=== PATIENT | female | born 1955 | race Caucasian/White ===

== ENCOUNTER → 2017-03-11 | Outpatient (CLI) | payer OTHER | LOC: BRMIMAGING 13:15 | PROVIDERS: ATTEND Family Medicine | DX: Z12.31 Encounter for screening mammogram for malignant neoplasm of breast (principal); Z13.820 Encounter for screening for osteoporosis; M85.80 Other specified disorders of bone density and structure, unspecified site | CPT/HCPCS: G0202 ==

== ENCOUNTER → 2018-03-16 | Outpatient (CLI) | payer OTHER | LOC: BRMIMAGING 11:44 | PROVIDERS: ATTEND Physician Assistant Medical | DX: Z12.31 Encounter for screening mammogram for malignant neoplasm of breast (principal) ==

== ENCOUNTER → 2018-09-27 | Outpatient (CLI) | payer OTHER | LOC: BRMIMAGING 11:11 | PROVIDERS: ATTEND Family Medicine | DX: J34.89 Other specified disorders of nose and nasal sinuses (principal) | CPT/HCPCS: 70150-PO ==

== ENCOUNTER 2019-02-13 06:17 | Inpatient (IN) | payer OTHER ==
[2019-02-13] MEDS ORDERED: ceFAZolin 2 GM/DEXTROSE 100 ML IV ONE (06:30)
[2019-02-13] MEDS ORDERED: LR 1,000 ML IV ONE (06:32)
--- NOTE | 2019-02-13 07:27 | PDANEPAE ---
ANE History of Present Illness left upper lung mass ANE Past Medical History - Cardiovascular History Hx Hypertension: No Hx Arrhythmias: Yes Hx Chest Pain: No Hx Coronary Artery / Peripheral Vascular Disease: No Hx CHF / Valvular Disease: No Hx Palpitations: Yes Cardiovascular History Comment: ATRIAL FIB - Pulmonary History Hx COPD: No Hx Asthma/Reactive Airway Disease: No Hx Recent Upper Respiratory Infection: No Hx Oxygen in Use at Home: No Hx Sleep Apnea: Yes Sleep Apnea Screening Result - Last Documented: Positive Pulmonary History Comment: MASS L UPPER LOBE - Neurologic History Hx Cerebrovascular Accident: No Hx Seizures: No Hx Dementia: No - Endocrine History Hx Diabetes: No Hypothyroid: Yes Hyperthyroid: No Obesity: no Endocrine History Comment: THYROIDECTOMY - Renal History Hx Renal Disorders: No - Liver History Hx Hepatic Disorders: No - Neurological & Psychiatric Hx Hx Neurological and Psychiatric Disorders: No - Cancer History Hx Cancer: No Cancer History Comment: UTERUS - PARTIAL HYSTERECTOMY - Congenital Disorder History Hx Congenital Disorders: No - GI History GERD: no Hx Gastrointestinal Disorders: No - Other Health History Other Health History: ECZEMA - Chronic Pain History Chronic Pain: No - Surgical History Prior Surgeries: THYROIDECTOMY. TONSILLECTOMY. C SECTION. PARTIAL HYSTERECTOM ANE Review of Systems Review of systems is: negative Review of Systems: - Exercise capacity METS (RN): 4 METS ANE Patient History - Allergies Allergies/Adverse Reactions: Sulfa (Sulfonamide Antibiotics) Allergy (Verified 02/13/19 06:37) Rash - Home Medications Home medications: home medication list seen and reviewed Home Medications: ALPRAZolam [Xanax 0.5 MG (*)] 0.5 mg PO HS PRN 02/07/19 [Last Taken 02/12/19] Aspirin [Aspirin 81mg (*)] 81 mg PO DAILY 02/07/19 [Last Taken 02/08/19] Calcium Carb W/Vit D [Calcium Carb W/Vit D 500/200 (*)] 500 mg PO DAILY [Last Taken 02/08/19] Levothyroxine [Synthroid 50 mcg (*)] 50 mcg PO DAILY06 02/07/19 [Last Taken ] Metoprolol Succinate Xr [Toprol Xl 25 mg (*)] 12.5 mg PO DAILY 02/07/19 [Last Taken 02/12/19] [place]-3 Fatty Acids [Fish Oil 1000 mg (*)] 1,000 mg PO DAILY 02/07/19 [Last Taken 02/08/19] Propafenone HCl Sr [Rythmol Sr 325mg (*)] 325 mg PO Q12 02/07/19 [Last Taken ] Ibuprofen 02/08/19 [Last Taken 02/08/19] - NPO status NPO Status: no food or drink >8 hours NPO Since - Liquids (Date): 02/13/19 NPO Since - Liquids (Time): 04:30 NPO Since - Solids (Date): 02/12/19 NPO Since - Solids (Time): 19:00 - Anes Hx Anes Hx: no prior problems - Smoking Hx Smoking Status: Former smoker - Family Anes Hx Family Anes Hx: none Family Hx Anesthesia Complications: NEG ANE Labs/Vital Signs - Vital Signs Blood Pressure: 142/94 Heart Rate: 52 Respiratory Rate: 16 O2 Sat (%): 98 Height: 152.4 cm Weight: 65.771 kg ANE Physical Exam - Airway Neck exam: FROM Mallampati Score: Class 2 Mouth exam: normal dental/mouth exam - Pulmonary Pulmonary: no respiratory distress, clear to auscultation - Cardiovascular Cardiovascular: regular rate and rhythym, no murmur, rub, or gallop - ASA Status ASA Status: III ANE Anesthesia Plan Anesthesia Plan: general endotracheal anesthesia, epidural Lines/Monitors: arterial line
[2019-02-13] MEDS ORDERED: MIDAZOLAM 2 MG/2 ML VIAL IVP ONE (07:33)
[2019-02-13] MEDS ORDERED: BUPIVACAINE/EPI 0.5% 30 ML SDV ONE (07:44)
[2019-02-13] MEDS ORDERED: TALC 3 GM INTRAPLEURAL VIAL ONE (07:45)
--- NOTE | 2019-02-13 07:46 | PDHPUP ---
History & Physical Update H&P update statement: This history and physical update is based on an assessment of the patient which was completed after admission or registration (within 24 hours), but prior to the surgery/procedure. H&P update: H&P reviewed & patient examined, no change in patient's condition since H&P completed
[2019-02-13] MEDS ORDERED: fentaNYL 250 MCG/5 ML INJ ONE (07:47)
[2019-02-13] MEDS ORDERED: PROPOFOL/EMULSION 500 MG/50 ML BOTTLE IV ONE (07:47)
[2019-02-13] MEDS ORDERED: ROCURONIUM 50 MG/5 ML VIAL ONE (07:48)
[2019-02-13] MEDS ORDERED: LIDOCAINE 2% 2 ML INJ ONE ×2 (07:49)
[2019-02-13] MEDS ORDERED: ePHEDrine SULFATE 25 MG/5 ML SYR ONE ×2 (09:13→09:31)
[2019-02-13] MEDS ORDERED: PHENYLEPHRINE HCL 100 MCG/ML SYR ONE (09:49)
[2019-02-13] MEDS ORDERED: HYDROmorphONE/DILAUDID 2 MG/ML INJ IVP PRN (10:19)
[2019-02-13] MEDS ORDERED: PROMETHAZINE HCL 25 MG/ML INJ IVP PRN (10:19)
[2019-02-13] MEDS ORDERED: NALOXONE HCL 0.4 MG/ML INJ IVP PRN ×2 (10:19→11:00)
--- NOTE | 2019-02-13 10:20 | POSTANESTH ---
Post Anesthetic Evaluation Cardiovascular Status: Normal, Stable Respiratory Status: Normal, Stable Level of Consciousness/Mental Status: Can Participate in Eval Pain Control: Adequate, Prn Tx Ordered Nausea/Vomiting Control: Adequate, Prn Tx Ordered Complications Possibly Related to Anesthesia: None Noted
[2019-02-13] MEDS ORDERED: ONDANSETRON 4 MG/2 ML VIAL ONE (10:21)
[2019-02-13] MEDS ORDERED: DEXAMETHASONE 4 MG/ML VIAL ONE (10:21)
[2019-02-13] MEDS ORDERED: GLYCOPYRROLATE 0.2 MG/1 ML VIAL ONE ×2 (10:29)
[2019-02-13] MEDS ORDERED: ONDANSETRON 4 MG/2 ML VIAL IVP PRN ×2 (10:44→10:55)
[2019-02-13] MEDS ORDERED: ACETAMINOPHEN 325 MG TAB PO PRN (10:55)
[2019-02-13] MEDS ORDERED: ALPRAZolam 0.5 MG TAB PO PRN (10:58)
[2019-02-13] MEDS ORDERED: diphenhydrAMINE 25 MG CAP PO PRN (11:00)
--- NOTE | 2019-02-13 11:01 | POSTOPPROG ---
Post Op Note Date of Operation: 02/13/19 Surgeon: Clement Sherwood Oil Transport Driver: Kelly Dodge Anesthesiologist: Mike Encinas Anesthesia: GET(General Endotracheal) Pre-op Diagnosis: ANTWAN lung mass Post-op Diagnosis: likely ANTWAN lung cancer Procedure: L VATS, L minithoracotomy, ANTWAN lobectomy, hilar and mediastinal LN bx 's Findings: frozen section +malignancy, bronchial margin clear Inf/Abcess present in the surg proc area at time of surgery?: No EBL: Minimal Complications: none Drains: Other (2 28 Fr chest tubes) Specimen(s): multiple to pathology
[2019-02-13] MEDS: fentaNYL 100 MCG/2 ML INJ IVP PRN ×2 (11:05→11:17)
[2019-02-13] MEDS ORDERED: fentaNYL 100 MCG/2 ML INJ ONE (11:06)
--- NOTE | 2019-02-13 11:28 | PDMN ---
Medical Necessity Medical necessity: Pt meets inpt criteria per MD order and [facility] S-802, Lobectomy , Lung, by Video-Assisted Thoracic Surgery (VATS), IP only list, 2 days. 63 y /o w/ANTWAN lung mass admitted for L VATS, L minithoracotomy, ANTWAN lobectomy, hilar and mediastinal LN bx's, and post-op care.
[2019-02-13] MEDS: fentaNYL 2MCG/ML&BUP 0.0625% in 100ML NS EP SCH ×2 (11:33→19:42)
[2019-02-13] MEDS: KETOROLAC 15 MG/1 ML SDV IVP SCH ×3 (12:46→23:27)
[2019-02-13] MEDS: NS 1,000 ML IV SCH ×2 (12:46→22:40)
[2019-02-13] MEDS: DC NARCS MISC SCH (12:52)
[2019-02-13] MEDS: REGARDING ANTICOAG MISC SCH (12:52)
--- NOTE | 2019-02-13 17:11 | SOAPPROG ---
SOAP Progress Note Assessment/Plan: Assessment/Plan: 63 Y F s/p L VATS, L minithoracotomy, ANTWAN mass intraoperative needle biopsy, ANTWAN lobectomy, hilar and mediastinal LN biopsies. POD#0. Post op check. Wounds intact. Pain controlled. CT to suction. Regular diet. Continue lyon. D/c arterial line. Continue routine post op ICU care. CXR in am. Path pending, suspicious for CA. Also seen by Dr. Sherwood. 02/13/19 17:09 Objective: Vital Signs Temp Pulse Resp BP Pulse Ox 36.5 C 54 L 18 129/55 H 100 02/13/19 12:30 02/13/19 14:00 02/13/19 14:00 02/13/19 14:00 02/13/19 14:00 02/12/19 02/13/19 02/14/19 05:59 05:59 05:59 Intake Total 1500 Output Total 50 Balance 1450 ICD10 Worksheet Patient Problems: Problems Problem Status Onset Mass of upper lobe of left lung Acute - ICD10 Problem Qualifiers (1) Mass of upper lobe of left lung
[2019-02-13] MEDS ORDERED: CALCIUM CARBONATE 500 MG CHEWABLE TAB PO PRN (19:53)
[2019-02-13] MEDS: PROPAFENONE HCL SR 325 MG CAP PO SCH (20:24)
[2019-02-13] MEDS: DOCUSATE SODIUM 100 MG CAP PO SCH (20:24)
[2019-02-13] MEDS: METOPROLOL SUCCINATE XR 25 MG TAB PO SCH (20:25)
[2019-02-13] MEDS ORDERED: CEPACOL LOZENGE PO PRN (22:47)
[2019-02-14] MEDS: LEVOTHYROXINE 50 MCG TAB PO SCH (05:38)
[2019-02-14] MEDS: KETOROLAC 15 MG/1 ML SDV IVP SCH (05:39)
[2019-02-14] MEDS: NS 1,000 ML IV SCH ×2 (05:40→15:28)
[2019-02-14] MEDS: fentaNYL 2MCG/ML&BUP 0.0625% in 100ML NS EP SCH ×2 (07:24→17:20)
[2019-02-14] MEDS: DOCUSATE SODIUM 100 MG CAP PO SCH ×2 (08:57→21:14)
[2019-02-14] MEDS: PROPAFENONE HCL SR 325 MG CAP PO SCH ×2 (08:58→21:41)
[2019-02-14] MEDS: ASPIRIN 81 MG CHEWABLE TAB PO SCH (08:58)
[2019-02-14] MEDS ORDERED: METOPROLOL SUCCINATE XR 25 MG TAB PO SCH (09:00)
[2019-02-14] MEDS: DC NARCS MISC SCH (09:16)
[2019-02-14] MEDS: REGARDING ANTICOAG MISC SCH (09:17)
--- NOTE | 2019-02-14 10:00 | ASMTCMCOM ---
CM Note CM Note Notes: Pt is a 63 yo F who underwent left upper lobe lumpectomy with Dr. Sherwood. HANDBAG FRAMES INSPECTOR ordered. Pt has chest tubes. Pt reports she sees Dr. Foote in the community and is interested in getting linked with a nurse navigator. CM also talked with pt about getting Palliative Care Services and pt was interested in outpatient linkage. Pt reports she has a boyfriend and sister who are supportive. CM to follow. Plan: TBD Date Signed: 02/14/2019 10:00 AM Electronically Signed By:STAR Sotelo
[2019-02-14] MEDS ORDERED: PNEUMOC 13-VAL CONJ-DIP CRM/PF 0.5 ML SYR (PREVNAR 13) IM ONE (10:12)
[2019-02-14] MEDS: FAMOTIDINE 20 MG TAB PO SCH ×2 (10:47→21:29)
--- NOTE | 2019-02-14 10:48 | PDPAINCON ---
Pain Management Consultation Patient referred by : Presley - Subjective Pain at rest (/10): 3 Pain with activity (/10): 7 (able to take a deep breath) Pain is: under control Activity: out of bed with assistance - Objective Technique: continuous epidural Continuous infusion: bupivicaine Continuous rate (ml/hr): 6 Bolus (ml): 4 Lockout interval (mins): 15 Catheter site: serosanguinous fluid (minimal) Sensory and motor exam: consistent with block Vital signs: stable - Assessment/Plan Assessment/Plan: pain well-controlled, continue current mgmt (Will continue PCEA , PCEA discussed with patient. Questions answered.)
--- NOTE | 2019-02-14 11:31 | SOAPPROG ---
SOAP Progress Note Assessment/Plan: Assessment/Plan: 63 Y F s/p L VATS, L minithoracotomy, ANTWAN mass intraoperative needle biopsy, ANTWAN lobectomy, hilar and mediastinal LN biopsies. POD#1. Seen c Dr. Sherwood. Continue CT to suction. Ok to walk on water seal. Excellent pain control c epidural. Continue ylon until removed. Activity restrictions per anesthesia. Adding pepcid and tums for heartburn symptoms. VTE ppx c lovenox tomorrow. Anesthesia aware. Pathology pending. Dispo: transfer from ICU. PCU vs [facility]--would like tele 12/23 hx afib. S: pain controlled. had a little fleeting sharpness in incision when she coughed. O: alert, nad ctab no air leak, good tidaling rrr abd soft wounds well dressed 02/14/19 11:12 Objective: Vital Signs Temp Pulse Resp BP Pulse Ox 36.8 C 60 16 93/56 L 97 02/14/19 04:00 02/14/19 10:00 02/14/19 10:00 02/14/19 10:00 02/14/19 10:00 Laboratory Results 02/14/19 05:55 02/14/19 05:55 02/13/19 02/14/19 02/15/19 05:59 05:59 05:59 Intake Total 4668 Output Total 3640 Balance 2125 ICD10 Worksheet Patient Problems: Problems Problem Status Onset Mass of upper lobe of left lung Acute - ICD10 Problem Qualifiers (1) Mass of upper lobe of left lung
--- NOTE | 2019-02-14 12:26 | GOP ---
[f rep st] OPERATIVE REPORT DATE OF OPERATION: 02/13/2019 SURGEON: Clement Sherwood MD LIME FILTER OPERATOR: AMOL Atwood ANESTHESIOLOGIST: Mike Encinas MD. PREOPERATIVE DIAGNOSIS: Left upper lobe mass. POSTOPERATIVE DIAGNOSIS: Left upper lobe cancer. PROCEDURE PERFORMED: 1. Video-assisted thoracoscopic surgery, left upper lobe needle biopsy. 2. Video-assisted thoracoscopic surgery, left upper lobectomy. 3. Video-assisted thoracoscopic surgery, mediastinal and hilar lymph node biopsies. FINDINGS: Patient was found to have a 3 cm mass in the midportion of the left upper lobe, which appe ared to be malignant on frozen section. There was no obvious nai spread or metastases. DESCRIPTION OF PROCEDURE: Patient taken to the operating room where she received satisfactory genera l endotracheal anesthesia by Dr. Barnett. She was placed in supine position, prepped and draped in the usual sterile fashion. The left lung was eventually decompressed and dropped down. A short incision was made in the 8th intercostal space in the midaxillary line. A trocar was introduced. Visualizat ion was adequate. Two other trocars were placed higher up in the thorax and the wound was examined. The patient had excellent fissures. There were no obvious major nodes. The mediastinal node was di ssected free by dividing the pleura over the hilum. This was removed and sent to Pathology, along wi th hilar node which was dissected free and sent to Pathology. The upper lobe was then mobilized and the arterial supply and the vein were isolated and prepared for division. However, the mass could no t be seen and not definitely palpated laparoscopically. One of the trocars was turned into a short m ini thoracotomy through the 5th intercostal space and that allowed a manual palpation of the lung. T he mass was identified. Rehan-Cut needle biopsies were taken of the mass and sent for frozen section a nd that was returned as non-small cell lung cancer, final path pending. At that point, the arterial supply to the left upper lobe was isolated and divided with Endo CARSON staplers, and the superior pulmo nary vein was also dissected free and isolated and divided with the Endo CARSON stapler. The bronchus w as then skeletonized. It was cross-clamped. There was adequate ventilation to the lower lobe, and t he bronchus was then divided with the Endo CARSON stapler as well and the specimen was brought out throu gh the thoracotomy site. The wound was tested under water and appeared to be air tight. Hemostasis was assured. There were no other major findings noted to send out. Two 28-Turkish chest tubes were b rought in through one of the trocar sites and placed in the apex of the lung. The ribs were then diane roximated with #1 Vicryl pericostal sutures with drill holes through the lower rib. Muscles were kelby sed in 2 layers with some running 0 Vicryl suture, subcu with 3-0 Vicryl, and the skin with a 3-0 Mon ocryl subcuticular stitch. The other trocar sites were closed with 4-0 Monocryl subcuticular sutures and infiltrated with 0.5% Marcaine. She tolerated the procedure well, was taken to the recovery kiran in good condition. There were no complications. Copy requested to: Qamar /[id number]/MODL
[2019-02-14] MEDS: METOPROLOL SUCCINATE XR 25 MG TAB PO SCH (21:14)
[2019-02-14] MEDS ORDERED: ALPRAZolam 0.25 MG TAB PO PRN (22:00)
[2019-02-15] MEDS ORDERED: METOPROLOL TARTRATE 25 MG TAB PO ONE (00:34)
--- NOTE | 2019-02-15 00:39 | PDHOSCONS ---
History and Physical - Chief Complaint Atrial fibrillation - History of Present Illness 63 yo F w/ lung CA and AF, admitted for VATS, converted to AF early on 02/15; hospital medicine service consulted for management. Patient underwent VATS with biopsy and lobectomy for lung CA on 02/13. Early this morning she was noted to convert to AF on the mold repairer. Rate is about 120, the patient is minimally symptomatic. She has a hx of AF and takes propafenone and metoprolol succinate 12.5 mg daily. She has paroxysmal AF and is aware of her rhythm when she converts into AF. At home she usually takes a small dose of metoprolol when she notes symptoms. At this time she denies chest pain or altered mental status. History Information - Allergies/Home Medication List Allergies/Adverse Reactions: Sulfa (Sulfonamide Antibiotics) Allergy (Verified 02/13/19 06:37) Rash Home Medications: ALPRAZolam [Xanax 0.5 MG (*)] 0.5 mg PO HS PRN 02/07/19 [Last Taken 02/12/19] Aspirin [Aspirin 81mg (*)] 81 mg PO DAILY 02/07/19 [Last Taken 02/08/19] Calcium Carb W/Vit D [Calcium Carb W/Vit D 500/200 (*)] 500 mg PO DAILY [Last Taken 02/08/19] Levothyroxine [Synthroid 50 mcg (*)] 50 mcg PO DAILY06 02/07/19 [Last Taken ] Metoprolol Succinate Xr [Toprol Xl 25 mg (*)] 12.5 mg PO DAILY 02/07/19 [Last Taken 02/12/19] [place]-3 Fatty Acids [Fish Oil 1000 mg (*)] 1,000 mg PO DAILY 02/07/19 [Last Taken 02/08/19] Propafenone HCl Sr [Rythmol Sr 325mg (*)] 325 mg PO Q12 02/07/19 [Last Taken ] Ibuprofen [Motrin (*)] 200 mg PO DAILY PRN 02/08/19 [Last Taken 02/08/19] I have personally reviewed and updated: family history, medical history - Past Medical History atrial fibrillation, cancer - Surgical History Additional surgical history: VATS - Family History Negative for: CAD - Social History Smoking Status: Former smoker Review of Systems Review of Systems: ROS: 10pt was reviewed & negative except for what was stated in HPI & below Physical Exam Physical Exam: Temp Pulse Resp BP Pulse Ox 37.5 C 123 H 12 99/56 L 96 02/14/19 23:44 02/14/19 23:44 02/14/19 23:44 02/14/19 23:44 02/14/19 23:44 O2 (L/minute) 2 Constitutional: no apparent distress, appears nourished Eyes: PERRL, EOMI Ears, Nose, Mouth, Throat: moist mucous membranes, no oral mucosal ulcers Cardiovascular: irregularly irregular, tachycardia Respiratory: no respiratory distress, No expiratory wheeze Gastrointestinal: normoactive bowel sounds, soft, non-tender abdomen Skin: warm, normal color Musculoskeletal: full muscle strength, no muscle tenderness Neurologic: AAOx3, CN II-XII Intact Psychiatric: interacting appropriately, not anxious Lab Data & Imaging Review 02/14/19 05:55 02/14/19 05:55 Hgb 11.6 g/dL (12.6-16.3) L 02/14/19 05:55 Hct 34.7 % (38.0-47.0) L 02/14/19 05:55 Sodium 133 mEq/L (135-145) L 02/14/19 05:55 Potassium 4.5 mEq/L (3.5-5.2) 02/14/19 05:55 Chloride 110 mEq/L (97-110) 02/14/19 05:55 Carbon Dioxide 21 mEq/l (22-31) L 02/14/19 05:55 Anion Gap 2 mEq/L (6-14) L 02/14/19 05:55 BUN 16 mg/dL (7-23) 02/14/19 05:55 Creatinine 0.7 mg/dL (0.6-1.0) 02/14/19 05:55 Estimated GFR > 60 02/14/19 05:55 Glucose 94 mg/dL (70-100) 02/14/19 05:55 Calcium 9.0 mg/dL (8.5-10.4) 02/14/19 05:55 Patient ABO/Rh O POSITIVE 02/10/19 12:30 Antibody Screen NEGATIVE 02/10/19 12:30 Assessment & Plan Assessment: 63 yo F w/ lung CA and AF, admitted for VATS, converted to AF early on 02/15; hospital medicine service consulted for management. Plan: 1. Paroxysmal atrial fibrillation - Patient converted into AF early on 02/15. HR ~120 and minimally symptomatic. She has a known hx of AF and takes propafenone and Toprol XL 12.5 mg qD as an outpatient. - Metoprolol tartrate 12.5 mg x1 now, redose if necessary - Continue to monitor on telemetry - Maintain K>4, Mg>2 2. Lung mass - S/p VATS with biopsy and lobectomy 02/13. - Management per surgery primary Thank you for this consult, the hospital medicine service will follow along with you.
[2019-02-15] MEDS: NS 1,000 ML IV SCH (01:13)
[2019-02-15] MEDS ORDERED: ALPRAZolam 0.25 MG TAB PO ONE (02:57)
[2019-02-15] MEDS: fentaNYL 2MCG/ML&BUP 0.0625% in 100ML NS EP SCH (03:53)
[2019-02-15] MEDS: LEVOTHYROXINE 50 MCG TAB PO SCH (06:29)
[2019-02-15] MEDS: REGARDING ANTICOAG MISC SCH (08:02)
[2019-02-15] MEDS: DC NARCS MISC SCH (08:02)
[2019-02-15] MEDS: PROPAFENONE HCL SR 325 MG CAP PO SCH ×2 (08:14→21:21)
[2019-02-15] MEDS: DOCUSATE SODIUM 100 MG CAP PO SCH ×2 (08:15→21:21)
[2019-02-15] MEDS: FAMOTIDINE 20 MG TAB PO SCH ×2 (08:15→21:21)
[2019-02-15] MEDS: ASPIRIN 81 MG CHEWABLE TAB PO SCH (08:15)
[2019-02-15] MEDS ORDERED: METOPROLOL TARTRATE 5 MG/5 ML INJ IVP ONE (10:31)
[2019-02-15] MEDS: ENOXAPARIN 40 MG/0.4 ML SYR SC SCH (12:05)
--- NOTE | 2019-02-15 12:05 | PDPAINCON ---
Pain Management Consultation Patient referred by Dr.: Presley - Subjective Pain at rest (/10): 0 Pain with activity (/10): 7 Pain is: under control Activity: out of bed with assistance - Objective Technique: continuous epidural Continuous infusion: Fentanyl Continuous rate (ml/hr): 6 Bolus (ml): 4 Lockout interval (mins): 15 Catheter site: clean, dry, intact Sensory and motor exam: consistent with block Vital signs: stable - Assessment/Plan Assessment/Plan: pain well-controlled, continue current mgmt Additional comments: Chest tubes removed today. Will continue thoracic PCEA for 1-[address] Sherwood.
[2019-02-15] MEDS ORDERED: METOPROLOL TARTRATE 25 MG TAB PO PRN (14:00)
--- NOTE | 2019-02-15 14:02 | HOSPPROG ---
Hospitalist Progress Note Assessment/Plan: 63 yo F w/ lung CA and AF, admitted for VATS. Medicine consulted for mgmt of atrial fibrillation with RVR. She appears to have converted to sinus but is still mildly tachycardic. #Paroxysmal atrial fibrillation: Precipitated by adrenergic surge from surgery. Now in sinus after 5mg IV metoprolol this AM. - Continue home proprafenone, metoprolol XL 12.5mg qhs - Will add metoprolol tartrate 12.5mg PRN for sustained HR>130 - Continue aspirin daily. Her [id number] score is 2 now that she is 63. Per patient, her black top raker is planning on starting her on systemic anticoagulant once surgeries are completed. #Sinus tachycardia: Likely physiologic after surgery, lobectomy, pain, etc. Continue to monitor on telemetry. #Lung mass s/p VATS with biopsy and lobectomy 02/13 - Mgmt per surgery primary Thank you for this consult, the hospital medicine service will follow along with you. Subjective: Feeling well. Doesn't know shes in afib w/rvr. No chest pain, lightheadedness, presyncope. Objective: Vital Signs Temp Pulse Resp BP Pulse Ox 36.9 C 113 H 17 120/87 H 96 02/15/19 11:12 02/15/19 11:12 02/15/19 11:12 02/15/19 11:12 02/15/19 11:12 Laboratory Results 02/15/19 07:49 02/15/19 07:49 02/14/19 02/15/19 02/16/19 05:59 05:59 05:59 Intake Total 4675 3240 400 Output Total 2550 4850 1400 Balance 2125 -1610 -1000 - Physical Exam Constitutional: no apparent distress, appears nourished, not in pain Eyes: PERRL, anicteric sclera, EOMI Ears, Nose, Mouth, Throat: moist mucous membranes, hearing normal, ears appear normal, no oral mucosal ulcers Cardiovascular: tachycardia, other (regular rhythm), No edema Respiratory: no respiratory distress, other (chest tube in place draining sanguinous fluid) Gastrointestinal: normoactive bowel sounds, soft, non-tender abdomen, no palpable masses Genitourinary: no bladder fullness, no bladder tenderness, no renal bruits Skin: no rashes or abrasions, no fluctuance, no induration Musculoskeletal: full muscle strength, no muscle tenderness, normal joint ROM Neurologic: AAOx3, sensation intact bilaterally Psychiatric: interacting appropriately, not anxious, not encephalopathic, thought process linear ICD10 Worksheet Patient Problems: Problems Problem Status Onset Mass of upper lobe of left lung Acute
--- NOTE | 2019-02-15 15:22 | SOAPPROG ---
SOAP Progress Note Assessment/Plan: Assessment/Plan: 63 Y F s/p L VATS, L minithoracotomy, ANTWAN mass intraoperative needle biopsy, ANTWAN lobectomy, hilar and mediastinal LN biopsies. POD#2 Path reveals invasive pulmonary adenocarcinoma, 1/3 L upper lobar LNs and 1/1 intralobar LNs +for mets. Mediastinal nodes negative. Chest tube with no air leak. Removed today. Follow up Xray shows no pneumo. Pain controlled with epidural. Discussed with anesthesia-- will likely take it out tomorrow or Tuesday. Will order PO meds for transition. Lovenox ok. Continue lyon until epidural is out. S: Pain controlled. No complaints. O: Alert Afebrile No increased WOB, CTAB, chest tube with no air leak, incision well dressed. Abdomen soft, nontender, nondistended 02/15/19 15:17 Objective: Vital Signs Temp Pulse Resp BP Pulse Ox 36.9 C 60 16 94/51 L 97 02/15/19 11:12 02/15/19 15:11 02/15/19 15:11 02/15/19 15:11 02/15/19 15:11 Laboratory Results 02/15/19 07:49 02/15/19 07:49 02/14/19 02/15/19 02/16/19 05:59 05:59 05:59 Intake Total 4646 3240 400 Output Total 0670 6920 1400 Balance 2125 -1610 -1000 ICD10 Worksheet Patient Problems: Problems Problem Status Onset Mass of upper lobe of left lung Acute
--- NOTE | 2019-02-15 15:58 | ASMTCMCOM ---
CM Note CM Note Notes: CM spoke with PA and MD who were agreeable to place palliative order. Pt is very appreciative. Palliative to meet with pt tomorrow. CM also contacted Nurse Navigator (Hanane) Who will come speak with pt tomorrow. PT rec home. CM to follow. Plan: home independently with [facility] Palliative support and oncology followup, including Nurse Navigator. Date Signed: 02/15/2019 03:57 PM Electronically Signed By:STAR Sotelo
[2019-02-15] MEDS ORDERED: NS 500 ML IV ONE (16:13)
[2019-02-15] MEDS ORDERED: ATROPINE SULFATE 1 MG/10 ML SYR ONE (16:20)
[2019-02-15 17:12] LABS: PLATELET COUNT 168 10^3/uL (150-400)
[2019-02-15] MEDS: HYDROCODONE/APAP 5/325 TAB PO PRN ×2 (17:59→18:33)
[2019-02-15] MEDS: POLYETHYLENE GLYCOL 3350 17 GM PKT PO PRN (18:37)
[2019-02-15] MEDS ORDERED: ONDANSETRON 4 MG/2 ML VIAL IVP PRN (19:45)
[2019-02-15] MEDS ORDERED: fentaNYL 2MCG/ML&BUP 0.0625% in 100ML NS EP SCH (20:00)
[2019-02-15] MEDS ORDERED: diphenhydrAMINE 25 MG CAP PO PRN (20:00)
[2019-02-15] MEDS ORDERED: NALOXONE HCL 0.4 MG/ML INJ IVP PRN (20:00)
[2019-02-15] MEDS: KETOROLAC 15 MG/1 ML SDV IVP SCH (21:20)
[2019-02-15] MEDS: SENNOSIDES/DOCUSATE SODIUM TAB PO SCH (21:21)
[2019-02-16] MEDS: KETOROLAC 15 MG/1 ML SDV IVP SCH ×4 (02:29→20:08)
[2019-02-16] MEDS: LEVOTHYROXINE 50 MCG TAB PO SCH (06:13)
[2019-02-16] MEDS: DC NARCS MISC SCH (08:41)
[2019-02-16] MEDS: REGARDING ANTICOAG MISC SCH (08:41)
[2019-02-16] MEDS: SENNOSIDES/DOCUSATE SODIUM TAB PO SCH ×2 (08:48→20:08)
[2019-02-16] MEDS: ENOXAPARIN 40 MG/0.4 ML SYR SC SCH (08:48)
[2019-02-16] MEDS: POLYETHYLENE GLYCOL 3350 17 GM PKT PO PRN (08:48)
[2019-02-16] MEDS: DOCUSATE SODIUM 100 MG CAP PO SCH ×2 (08:49→20:08)
[2019-02-16] MEDS: FAMOTIDINE 20 MG TAB PO SCH ×2 (08:49→20:08)
[2019-02-16] MEDS: PROPAFENONE HCL SR 325 MG CAP PO SCH ×2 (08:49→20:08)
[2019-02-16] MEDS: ASPIRIN 81 MG CHEWABLE TAB PO SCH (08:49)
--- NOTE | 2019-02-16 11:07 | PDPAINCON ---
Pain Management Consultation Patient referred by : Presley - Subjective Pain at rest (/10): 2 Pain with activity (/10): 7 Pain is: under control Activity: out of bed with assistance - Objective Technique: continuous epidural Site: thoracic Continuous infusion: Fentanyl Continuous rate (ml/hr): 4 Bolus (ml): 3 Catheter site: clean, dry, intact Sensory and motor exam: consistent with block, dermatomal level Vital signs: stable (Pt. with episode of hypotension and bradycardia yesterday afternoon, improved after a fluid bolus and holding of epidural infusion. After hemodynamic improvement, PCEA restarted at a lower rate. Pt. has remained stable since.) - Assessment/Plan Assessment/Plan: pain well-controlled, continue current mgmt, other (Patient started on PO analgesia yesterday, will encourage PO management today for breaktrhrough pain and plan to D/C epidural catheter tomorrow.)
--- NOTE | 2019-02-16 11:39 | HOSPPROG ---
Hospitalist Progress Note Assessment/Plan: 63 yo F w/ lung CA and AF, admitted for VATS. Medicine consulted for mgmt of atrial fibrillation with RVR. Had sinus pause and converted from AF to sinus bradycardia associated with hypotension 02/15. This resolved with IVF and discontinuing fentanyl. #Paroxysmal atrial fibrillation: Now in sinus. - Continue propafenone - Holding home metoprolol XL 12.5mg qhs until off of epidural - Continue aspirin daily. Her [id number] score is 2 now that she is 63. Per patient, her senior treasury consultant is planning on starting her on systemic anticoagulant once surgeries are completed. #Sinus bradycardia: Likely precipitated by excessive AV nai blockade, increased vagal tone. Now resolved. #Hypotension: Due to hypovolemia and opioid side effect. Now normotensive. 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 - Pain control per anesthesia. Plan to wean off epidural tomorrow The hospital medicine service will follow along with you. Subjective: Put back on fentanyl epidural for increasing pain. BP and HR have been stable since yesterday evening. Pain controlled today. Chest tube now out. Objective: Vital Signs Temp Pulse Resp BP Pulse Ox 36.6 C 61 15 116/72 92 02/16/19 07:00 02/16/19 10:00 02/16/19 10:00 02/16/19 10:00 02/16/19 10:07 Laboratory Results 02/15/19 16:47 02/15/19 16:47 02/15/19 02/16/19 02/17/19 05:59 05:59 05:59 Intake Total 3240 1813 Output Total 4850 3100 Balance -1610 -1287 - Physical Exam Constitutional: no apparent distress, appears nourished, not in pain Eyes: PERRL, anicteric sclera, EOMI Ears, Nose, Mouth, Throat: moist mucous membranes, hearing normal, ears appear normal, no oral mucosal ulcers Cardiovascular: regular rate and rhythym, no murmur, rub, or gallop, No JVD, No edema Respiratory: no respiratory distress, no rales or rhonchi, clear to auscultation Gastrointestinal: normoactive bowel sounds, soft, non-tender abdomen, no palpable masses Genitourinary: lyon in urethra Skin: no rashes or abrasions, no fluctuance, no induration Musculoskeletal: full muscle strength, no muscle tenderness, normal joint ROM Neurologic: AAOx3 Psychiatric: interacting appropriately ICD10 Worksheet Patient Problems: Problems Problem Status Onset Mass of upper lobe of left lung Acute
[2019-02-16] MEDS: HYDROCODONE/APAP 5/325 TAB PO PRN ×4 (12:30→21:56)
[2019-02-16] MEDS: MAGNESIUM HYDROXIDE 30 ML UDCUP PO PRN (16:10)
[2019-02-16] MEDS ORDERED: HYDROmorphONE/DILAUDID 1 MG/ML INJ IVP PRN (16:57)
[2019-02-17] MEDS: KETOROLAC 15 MG/1 ML SDV IVP SCH (03:06)
[2019-02-17] MEDS: POLYETHYLENE GLYCOL 3350 17 GM PKT PO PRN ×2 (05:04→13:28)
[2019-02-17] MEDS: LEVOTHYROXINE 50 MCG TAB PO SCH (05:04)
[2019-02-17] MEDS: ENOXAPARIN 40 MG/0.4 ML SYR SC SCH ×2 (07:09→12:06)
[2019-02-17] MEDS ORDERED: IBUPROFEN 600 MG TAB PO PRN (07:25)
--- NOTE | 2019-02-17 07:28 | PDHOMEO2F ---
Home Oxygen Face to Face Home Orders: I certify that a physician or a nurse practitioner or physician's inventory control assistant has had a [id number] encounter with this patient on the date of this order due to the diagnosis listed, which relates to the primary reason the patient requires home oxygen. Alternative treatments have been tried, or considered, and deemed ineffective. It is anticipated that supplemental oxygen will result in improvement with treatment. Home oxygen qualifying diagnosis: lung resection SpO2 on room air (%): 80 Frequency of home oxygen needed: continuous Home oxygen liters per minute: 2.5 Home oxygen delivery device: nasal cannula Concentrator: Yes E-tanks for mobility and back up: Yes If ordering portable O2, is the patient mobile in the home?: Yes I certify that, based on these findings, the home oxygen is medically necessary for this patient for the following length of time. Length of time home oxygen needed: 3 months
--- NOTE | 2019-02-17 07:46 | PDPAINCON ---
Pain Management Consultation Patient referred by : Presley - Subjective Pain at rest (/10): 0 Pain with activity (/10): 5 Pain is: under control Activity: out of bed with assistance - Objective Technique: continuous epidural Continuous infusion: Fentanyl Continuous rate (ml/hr): 2 Bolus (ml): 3 Catheter site: serosanguinous fluid Sensory and motor exam: other (Epidural catheter easily removed with tip intact. ) Vital signs: stable - Assessment/Plan Assessment/Plan: pain well-controlled, continue current mgmt, other (Pt. did well on decreased infusion overnight, off since 0600. Continue PO meds.)
--- NOTE | 2019-02-17 08:34 | SOAPPROG ---
SOAP Progress Note Assessment/Plan: Assessment: 63yo F s/p VATs, lung resection - VSS, HDs - 2.5L O2, will likely need this on dc - epidural out, [place] for pain - will see how she looks later today for poss dc Plan: 02/17/19 08:34 Objective: Vital Signs Temp Pulse Resp BP Pulse Ox 35.9 C L 65 20 151/66 H 96 02/17/19 08:00 02/17/19 08:00 02/17/19 08:00 02/17/19 08:00 02/17/19 08:00 Laboratory Results 02/15/19 16:47 02/15/19 16:47 02/16/19 02/17/19 02/18/19 05:59 05:59 05:59 Intake Total 1816 2750 Output Total 0150 2650 Balance -1287 100 ICD10 Worksheet Patient Problems: Problems Problem Status Onset Mass of upper lobe of left lung Acute
[2019-02-17] MEDS: ASPIRIN 81 MG CHEWABLE TAB PO SCH (09:16)
[2019-02-17] MEDS: HYDROCODONE/APAP 5/325 TAB PO PRN ×3 (09:16→17:39)
[2019-02-17] MEDS: DOCUSATE SODIUM 100 MG CAP PO SCH (09:16)
[2019-02-17] MEDS: PROPAFENONE HCL SR 325 MG CAP PO SCH (09:16)
[2019-02-17] MEDS: MAGNESIUM HYDROXIDE 30 ML UDCUP PO PRN (09:16)
[2019-02-17] MEDS: FAMOTIDINE 20 MG TAB PO SCH (09:16)
[2019-02-17] MEDS: SENNOSIDES/DOCUSATE SODIUM TAB PO SCH (09:16)
[2019-02-17] MEDS: DC NARCS MISC SCH (10:01)
[2019-02-17] MEDS: REGARDING ANTICOAG MISC SCH (10:01)
--- NOTE | 2019-02-17 10:03 | HOSPPROG ---
Hospitalist Progress Note Assessment/Plan: 63 yo F w/ lung CA and AF, admitted for VATS. Medicine consulted for mgmt of atrial fibrillation with RVR. Had sinus pause and converted from AF to sinus bradycardia associated with hypotension 02/15. This resolved with IVF and discontinuing fentanyl. She had some additional bradycardia 02/16 that again resolved with discontinuation of fentanyl. #Paroxysmal atrial fibrillation: Now in sinus. - Continue propafenone - Would hold metoprolol XL 12.5mg qhs at discharge. She can use metoprolol 12.5mg PRN if in symptomatic afib at home - Continue aspirin daily - I advised her to follow up with her supervisor liquid yeast in 7-10 days after discharge #Sinus bradycardia: Likely precipitated by excessive AV nai blockade, increased vagal tone. Now resolved. #Hypotension: Due to hypovolemia and opioid side effect. Now normotensive. 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 - Off epidural, pain controlled Ok to discharge from medicine stand point. Subjective: Had some additional bradycardia yesterday (? junctional). This again resolved after discontinuation of fentanyl. She was symptom free throughout this. No complaints this AM. Objective: Vital Signs Temp Pulse Resp BP Pulse Ox 35.9 C L 65 20 151/66 H 96 02/17/19 08:00 02/17/19 08:00 02/17/19 08:00 02/17/19 08:00 02/17/19 08:00 Laboratory Results 02/15/19 16:47 02/15/19 16:47 02/16/19 02/17/19 02/18/19 05:59 05:59 05:59 Intake Total 1813 2750 Output Total 3100 2650 Balance -1287 100 - Physical Exam Constitutional: no apparent distress, appears nourished, not in pain Eyes: PERRL, anicteric sclera, EOMI Ears, Nose, Mouth, Throat: moist mucous membranes, hearing normal, ears appear normal, no oral mucosal ulcers Cardiovascular: regular rate and rhythym, no murmur, rub, or gallop, No edema Respiratory: no respiratory distress, no rales or rhonchi, clear to auscultation Gastrointestinal: normoactive bowel sounds, soft, non-tender abdomen, no palpable masses Genitourinary: no bladder fullness, no bladder tenderness, no renal bruits Skin: no rashes or abrasions, no fluctuance, no induration Musculoskeletal: full muscle strength, no muscle tenderness, normal joint ROM Neurologic: AAOx3, sensation intact bilaterally Psychiatric: interacting appropriately, not anxious, not encephalopathic, thought process linear ICD10 Worksheet Patient Problems: Problems Problem Status Onset Mass of upper lobe of left lung Acute
--- NOTE | 2019-02-17 11:55 | CPEKG ---
Test Reason : OPEN Blood Pressure : / mmHG Vent. Rate : 057 BPM Atrial Rate : 056 BPM P-R Int : 148 ms QRS Dur : 091 ms QT Int : 444 ms P-R-T Axes : 032 071 030 degrees QTc Int : 433 ms Sinus rhythm Non specific inferior ST/T wave changes Confirmed by Isauro Chapman ([id number] on 02/17/2019 11:54:52 AM Referred By: Clement Sherwood Confirmed By:Isauro Chapman
[2019-02-17 17:25] VITALS: BP 163/68
== END 2019-02-17 18:10 | disposition home or self-care (01) | DRG 165 ==
LOC: F3N 06:17 → F2N 12:07 → F2W 02-14 17:40
PROVIDERS: ADMIT Surgery; ATTEND Surgery
DX: C34.12 Malignant neoplasm of upper lobe, left bronchus or lung (principal); I48.0 Paroxysmal atrial fibrillation; G47.33 Obstructive sleep apnea (adult) (pediatric); E89.0 Postprocedural hypothyroidism; Z90.710 Acquired absence of both cervix and uterus; Z53.32 Thoracoscopic surgical procedure converted to open procedure
CPT/HCPCS: 97116-GP; 97162-GP; G0009; J0461; J0690; J1100; J1650; J1885; J2250; J2370; J2405; J2704; J3010

== ENCOUNTER → 2019-02-27 | Outpatient (CLI) | payer OTHER | LOC: FIMAGING 10:23 | PROVIDERS: ATTEND Surgery | DX: C34.90 Malignant neoplasm of unspecified part of unspecified bronchus or lung (principal); J90 Pleural effusion, not elsewhere classified ==

== ENCOUNTER → 2019-03-09 | Outpatient (CLI) | payer OTHER ==
[~2019-03-09] MED LIST: GADOBUTROL 10 ML VIAL IVP ONE
== END ==
LOC: FIMAGING 09:46
PROVIDERS: ATTEND Internal Medicine Hematology & Oncology
DX: C34.90 Malignant neoplasm of unspecified part of unspecified bronchus or lung (principal)
CPT/HCPCS: 70553; A9585

== ENCOUNTER → 2019-05-01 | Outpatient (CLI) | payer OTHER | LOC: FIMAGING 09:03 ==